=== PATIENT | male | born 1935 | race Caucasian/White ===

== ENCOUNTER 2019-10-27 14:05 | Inpatient (IN) | payer MEDICARE ==
[~2019-10-27] VITALS: Ht 180.3 cm; Wt 96.7 kg
--- NOTE | 2019-10-27 14:28 | NUR ---
BREAK RN: THIS IS AN 84 YO MALE PT BIB [facility] FROM HOME C/O LEFT SIDED CHEST PAIN RADIATING TO LEFT SCAPULA RATED 6/10. PAIN STARTED AT APPROX 1100. PT REPORTS PAIN IMPROVED SLIGHTLY WITH NITRO FROM 6 TO 5/10. PT TOOK 325 MG ASA. PT HAS HX OF CP WITH ELEVATED TROPONIN 09/19. PT SCHEDULED FOR CARDIAC CATH ON WEDNESDAY. CARDS ARTHUR. REPORT TO PRIMARY RN ZAIDA. SURJIT EDUARDO AT BEDSIDE FOR EVAL.
[2019-10-27] MEDS ORDERED: MORPHINE SULFATE 4 MG/ML, 1ML IVPush PRN (14:30)
[2019-10-27] MEDS ORDERED: NITROGLYCERIN OINT 2%, 1GM TP ONE ×2 (14:30→14:33)
[2019-10-27] MEDS ORDERED: MORPHINE SULFATE 4 MG/ML, 1ML ONE (14:33)
--- NOTE | 2019-10-27 14:41 | NUR ---
PT MEDICATED PER JUN, AWAIT 10A FOR HEPARIN GTT
[2019-10-27 14:42] LABS: BASOPHILS # (AUTO) 0.02 x10^3/uL (0-0.1); BASOPHILS % (AUTO) 0 % (0-1); EOSINOPHILS # (AUTO) 0.09 x10^3/uL (0-0.4); EOSINOPHILS % (AUTO) 1 % (1-7); LYMPHOCYTES % (AUTO) 30 % (22-44); MD NO; MEAN CORPUSCULAR HEMOGLOBIN 30.8 pg (27.5-34.5); MEAN CORPUSCULAR HGB CONC 33.4 g/dL (33.2-36.2); MEAN PLATELET VOLUME 7.3 fL (7.4-10.4); MONOCYTES # (AUTO) 0.55 x10^3/uL (0.2-0.8); MONOCYTES % (AUTO) 8 % (2-9); NEUTROPHILS # (AUTO) 4.03 x10^3/uL (1.8-6.8); NEUTROPHILS % (AUTO) 60 % (42-75); PLATELET COUNT 222 x10^3/uL (130-400); RED BLOOD COUNT 4.98 x10^6/uL (4.38-5.82); RED CELL DISTRIBUTION WIDTH 13.1 % (9.4-14.8)
[2019-10-27] MEDS ORDERED: AMLO10TA8 PO (14:48)
[2019-10-27] MEDS ORDERED: FURO20TA3 PO (14:48)
[2019-10-27] MEDS ORDERED: MAGN400T26 PO (14:48)
[2019-10-27] MEDS ORDERED: OMEG-123 PO (14:48)
[2019-10-27] MEDS ORDERED: LISI40TA PO (14:48)
[2019-10-27] MEDS ORDERED: POTA20TA14 PO (14:48)
[2019-10-27] MEDS ORDERED: CHOL10003 PO (14:48)
[2019-10-27] MEDS ORDERED: DONE10TA14 PO (14:48)
[2019-10-27 14:50] LABS: ALBUMIN 3.4 g/dL (3.4-5.0); CALCIUM 9.4 mg/dL (8.5-10.1); CHLORIDE 108 mmol/L (98-107)
[2019-10-27 14:58] LABS: ALANINE AMINOTRANSFERASE 36 U/L (12-78); ALKALINE PHOSPHATASE 63 U/L (45-117); ANION GAP 5 mmol/L (5-15); BILIRUBIN,TOTAL 0.3 mg/dL (0.2-1.0); CREATININE 1.19 mg/dL (0.7-1.3); TOTAL PROTEIN 6.9 g/dL (6.4-8.2); TROPONIN I < 0.015 ng/mL (0.000-0.045)
[2019-10-27] MEDS ORDERED: HEPARIN 5,000 UNITS/ML, 1ML IV PRN (15:00)
[2019-10-27] MEDS ORDERED: HEPARIN 25,000 UNITS/250ML PMX 250 ML IV PRN (15:00)
[2019-10-27] MEDS ORDERED: HEPARIN 5,000 UNITS/ML, 1ML IV ONE (15:00)
[2019-10-27] MEDS ORDERED: HEPARIN 5,000 UNITS/ML, 1ML ONE (15:01)
[2019-10-27] MEDS ORDERED: HEPARIN 25,000 UNITS/250ML PMX 250 ML ONE (15:01)
--- NOTE | 2019-10-27 15:10 | NUR ---
PT DECLINES AT THIS TIME TO STAND ON SCALE, NO SCALE ON BED, PT STATES "I AM 100% SURE I WAY 210 LBS, I WEIGH MYSELF EVERY MORNING"
[2019-10-27] MEDS ORDERED: ACETAMINOPHEN 325 MG TABLET PO PRN (17:30)
[2019-10-27] MEDS ORDERED: morphine SULFATE 10 MG/ML, 1ML IVPush PRN (17:30)
[2019-10-27] MEDS ORDERED: hydrALAzine 20 MG/ML, 1ML IVPush PRN (17:30)
[2019-10-27] MEDS ORDERED: ONDANSETRON 2MG/ML, 2ML IVPush PRN (17:30)
[2019-10-27] MEDS ORDERED: HYDROcodone/APAP 5/325 TABLET PO PRN (17:30)
[2019-10-27] MEDS ORDERED: POLYETHYLENE GLYCOL 17 GM PACKET PO PRN (17:30)
[2019-10-27] MEDS ORDERED: BISACODYL 10 MG SUPP PR PRN (17:30)
[2019-10-27 18:15] LABS: TROPONIN I < 0.015 ng/mL (0.000-0.045)
[2019-10-27 18:47] VITALS: BP 156/75
[2019-10-27 20:05] VITALS: BP 123/69
[2019-10-27] MEDS: ATORVASTATIN 40 MG TABLET PO SCH (20:19)
[2019-10-27] MEDS: METOPROLOL TARTRATE 25 MG TAB PO SCH (20:19)
[2019-10-27] MEDS: LISINOPRIL 10 MG TABLET PO SCH (20:19)
[2019-10-27] MEDS: FAMOTIDINE 20 MG TABLET PO SCH (20:19)
[2019-10-27] MEDS: ZOLPIDEM 5MG TABLET PO PRN (23:34)
[2019-10-27 23:46] LABS: TROPONIN I 0.016 ng/mL (0.000-0.045)
[2019-10-28 02:49] VITALS: BP 107/63
[2019-10-28 05:31] LABS: BASOPHILS # (AUTO) 0.05 x10^3/uL (0-0.1); BASOPHILS % (AUTO) 1 % (0-1); EOSINOPHILS # (AUTO) 0.16 x10^3/uL (0-0.4); EOSINOPHILS % (AUTO) 3 % (1-7); LYMPHOCYTES # (AUTO) 2.18 x10^3/uL (1-3.4); LYMPHOCYTES % (AUTO) 33 % (22-44); MD NO; MEAN CORPUSCULAR HEMOGLOBIN 30.2 pg (27.5-34.5); MEAN CORPUSCULAR HGB CONC 32.6 g/dL (33.2-36.2); MEAN PLATELET VOLUME 7.6 fL (7.4-10.4); MONOCYTES % (AUTO) 9 % (2-9); NEUTROPHILS # (AUTO) 3.53 x10^3/uL (1.8-6.8); NEUTROPHILS % (AUTO) 54 % (42-75); PLATELET COUNT 190 x10^3/uL (130-400); RED BLOOD COUNT 4.56 x10^6/uL (4.38-5.82); RED CELL DISTRIBUTION WIDTH 13.4 % (9.4-14.8)
[2019-10-28 05:41] LABS: CHLORIDE 107 mmol/L (98-107)
[2019-10-28 05:49] LABS: ANION GAP 7 mmol/L (5-15); CALCIUM 8.3 mg/dL (8.5-10.1); CHOL/HDL RATIO 3.4; CHOLESTEROL, TOTAL 163 mg/dL (140-239); CREATININE 1.23 mg/dL (0.7-1.3); HDL CHOL % 29 % (26-37); HDL CHOLESTEROL (DIRECT) 48 mg/dL (40-60); LDL CHOLESTEROL,CALCULATED 91 mg/dL (54-169); LDL/HDL RATIO 1.9 (0.5-3.0); TRIGLYCERIDES 119 mg/dL (50-200); VLDL CHOLESTEROL 24 mg/dL (0-25)
[2019-10-28] MEDS ORDERED: ASPIRIN 325 MG TABLET EC PO SCH ×2 (06:00→09:00)
[2019-10-28 07:40] VITALS: BP 115/55
[2019-10-28] MEDS: METOPROLOL TARTRATE 25 MG TAB PO SCH ×2 (08:00→17:26)
[2019-10-28] MEDS: FAMOTIDINE 20 MG TABLET PO SCH ×2 (10:00→20:44)
[2019-10-28] MEDS: LISINOPRIL 10 MG TABLET PO SCH ×2 (10:00→20:44)
[2019-10-28] MEDS: SODIUM CHLORIDE 0.9% 1,000 ML IV SCH ×2 (12:00→17:29)
[2019-10-28] MEDS ORDERED: VERAPAMIL 2.5 MG/ML, 2ML ONE (12:42)
[2019-10-28] MEDS ORDERED: HEPARIN 1,000 UNITS/ML, 10ML ONE (12:42)
[2019-10-28] MEDS ORDERED: BIVALIRUDIN 250 MG ONE (12:42)
[2019-10-28] MEDS ORDERED: MIDAZOLAM 1 MG/ML, 5ML ONE (12:42)
[2019-10-28] MEDS ORDERED: LIDOCAINE-MPF 1%, 5ML ONE (12:42)
[2019-10-28] MEDS ORDERED: TICAGRELOR 90 MG TABLET ONE (12:42)
[2019-10-28] MEDS ORDERED: FENTANYL PF 100 MCG/2ML ONE (12:42)
[2019-10-28] MEDS ORDERED: SODIUM CHLORIDE 0.9% 1,000 ML IV SCH (13:41)
[2019-10-28 14:00] VITALS: BP 159/75
[2019-10-28 14:40] VITALS: BP 170/75
[2019-10-28 17:25] VITALS: BP 170/70
[2019-10-28 20:08] VITALS: BP 148/78
[2019-10-28] MEDS: ATORVASTATIN 40 MG TABLET PO SCH (20:44)
[2019-10-28] MEDS: TICAGRELOR 90 MG TABLET PO SCH (20:44)
[2019-10-28] MEDS: ZOLPIDEM 5MG TABLET PO PRN (20:45)
[2019-10-29 00:16] VITALS: BP 158/68
[2019-10-29 06:02] LABS: BASOPHILS # (AUTO) 0.02 x10^3/uL (0-0.1); BASOPHILS % (AUTO) 0 % (0-1); EOSINOPHILS # (AUTO) 0.13 x10^3/uL (0-0.4); EOSINOPHILS % (AUTO) 2 % (1-7); LYMPHOCYTES # (AUTO) 1.32 x10^3/uL (1-3.4); LYMPHOCYTES % (AUTO) 22 % (22-44); MD NO; MEAN CORPUSCULAR HEMOGLOBIN 30.4 pg (27.5-34.5); MEAN PLATELET VOLUME 7.4 fL (7.4-10.4); MONOCYTES # (AUTO) 0.63 x10^3/uL (0.2-0.8); MONOCYTES % (AUTO) 10 % (2-9); NEUTROPHILS # (AUTO) 4.03 x10^3/uL (1.8-6.8); NEUTROPHILS % (AUTO) 66 % (42-75); PLATELET COUNT 197 x10^3/uL (130-400); RED BLOOD COUNT 4.85 x10^6/uL (4.38-5.82); RED CELL DISTRIBUTION WIDTH 13.4 % (9.4-14.8)
[2019-10-29 06:13] LABS: ANION GAP 4 mmol/L (5-15); CALCIUM 8.8 mg/dL (8.5-10.1); CHLORIDE 109 mmol/L (98-107); CREATININE 1.19 mg/dL (0.7-1.3)
[2019-10-29 06:25] VITALS: BP 145/74
[2019-10-29 08:34] VITALS: BP 144/72
[2019-10-29] MEDS: LISINOPRIL 10 MG TABLET PO SCH (08:43)
[2019-10-29] MEDS: FAMOTIDINE 20 MG TABLET PO SCH (08:43)
[2019-10-29] MEDS: TICAGRELOR 90 MG TABLET PO SCH (08:43)
[2019-10-29] MEDS: METOPROLOL TARTRATE 25 MG TAB PO SCH (08:43)
[2019-10-29] MEDS ORDERED: ASPIRIN 81 MG TABLET EC PO SCH (09:00)
[2019-10-29] MEDS ORDERED: AMLODIPINE 5 MG TABLET PO SCH (09:30)
[2019-10-29] MEDS ORDERED: TICA90TA PO (11:32)
[2019-10-29] MEDS ORDERED: ATOR40TA78 PO (11:32)
[2019-10-29] MEDS ORDERED: ASPI81TA45 PO (11:32)
[2019-10-29] MEDS ORDERED: FAMOTIDINE 20 MG TABLET PO SCH (21:00)
== END 2019-10-29 15:28 | disposition home or self-care (01) | DRG 246 ==
LOC: ED 14:45 → EDIP 16:05 → 5SO 18:37 → DCLOUNGE 10-29 15:11
PROVIDERS: ADMIT Internal Medicine; ATTEND Hospitalist
PROC: 4A023N7 Measurement of Cardiac Sampling and Pressure, Left Heart, Percutaneous Approach (ICD-10-PCS; principal; 2019-10-28)
PROC: 027034Z Dilation of Coronary Artery, One Artery with Drug-eluting Intraluminal Device, Percutaneous Approach (ICD-10-PCS; 2019-10-28)
PROC: B2111ZZ Fluoroscopy of Multiple Coronary Arteries using Low Osmolar Contrast (ICD-10-PCS; 2019-10-28)
DX: I25.110 Atherosclerotic heart disease of native coronary artery with unstable angina pectoris (principal); I50.31 Acute diastolic (congestive) heart failure; I69.911 Memory deficit following unspecified cerebrovascular disease; Z91.81 History of falling; Z82.49 Family history of ischemic heart disease and other diseases of the circulatory system; Z79.899 Other long term (current) drug therapy; I11.0 Hypertensive heart disease with heart failure
CPT/HCPCS: 36415; 71045; 80048; 80053; 80061; 83036; 84439; 84443; 84484; 85025; 85520; 93005; 93306; 93458; 96374; 99156; 99157; 99285; C1769; C1894; C9600; G0378; J0583; J1644; J2250; J3010; C1725; C1874; C1887; J2270; Q9967

== ENCOUNTER 2019-11-03 08:42 | Observation (INO) | payer MEDICARE ==
[~2019-11-03] VITALS: Ht 180.3 cm; Wt 96.7 kg
[~2019-11-03 08:42] MED LIST: AMLO10TA8 PO; ASPI81TA45 PO; ATOR40TA78 PO; CHOL10003 PO; DONE10TA14 PO; FURO20TA3 PO; LISI40TA PO; MAGN400T26 PO; OMEG-123 PO; POTA20TA14 PO; TICA90TA PO
[2019-11-03] MEDS ORDERED: SODIUM CHLORIDE FLUSH 10ML SYR IVF ONE (09:00)
[2019-11-03 09:16] LABS: BASOPHILS # (AUTO) 0.02 x10^3/uL (0-0.1); BASOPHILS % (AUTO) 0 % (0-1); EOSINOPHILS # (AUTO) 0.11 x10^3/uL (0-0.4); EOSINOPHILS % (AUTO) 2 % (1-7); LYMPHOCYTES % (AUTO) 27 % (22-44); MD NO; MEAN CORPUSCULAR HEMOGLOBIN 30.2 pg (27.5-34.5); MEAN CORPUSCULAR HGB CONC 32.6 g/dL (33.2-36.2); MEAN PLATELET VOLUME 7.3 fL (7.4-10.4); MONOCYTES # (AUTO) 0.53 x10^3/uL (0.2-0.8); MONOCYTES % (AUTO) 9 % (2-9); NEUTROPHILS # (AUTO) 3.43 x10^3/uL (1.8-6.8); NEUTROPHILS % (AUTO) 61 % (42-75); PLATELET COUNT 219 x10^3/uL (130-400); RED BLOOD COUNT 4.92 x10^6/uL (4.38-5.82); RED CELL DISTRIBUTION WIDTH 13.6 % (9.4-14.8)
[2019-11-03] MEDS ORDERED: NITROGLYCERIN OINT 2%, 1GM TP ONE ×2 (09:24→09:30)
--- NOTE | 2019-11-03 09:45 | NUR ---
Nitro paste given, chest pain 5/10. Normal sinus rhythm on monitor in the 60s. Side rails up for safety, call light and belongings in reach. No otherpatient needs at this time.
[2019-11-03 09:52] LABS: ALBUMIN 3.4 g/dL (3.4-5.0); CALCIUM 8.6 mg/dL (8.5-10.1)
[2019-11-03 09:57] LABS: ALANINE AMINOTRANSFERASE 37 U/L (12-78); ALKALINE PHOSPHATASE 69 U/L (45-117); ANION GAP 7 mmol/L (5-15); CHLORIDE 105 mmol/L (98-107); CREATININE 1.41 mg/dL (0.7-1.3); TOTAL PROTEIN 6.7 g/dL (6.4-8.2); TROPONIN I 0.049 ng/mL (0.000-0.045)
[2019-11-03 10:05] LABS: BILIRUBIN,TOTAL 0.7 mg/dL (0.2-1.0)
[2019-11-03 11:28] LABS: HCT (SEDRATE) 44.8 % (39.2-51.8)
[2019-11-03] MEDS ORDERED: LIDODERM 5% PATCH TD PRN (11:30)
[2019-11-03] MEDS ORDERED: hydrALAzine 20 MG/ML, 1ML IVPush PRN (11:30)
[2019-11-03] MEDS ORDERED: BISACODYL 10 MG SUPP PR PRN (11:30)
[2019-11-03] MEDS ORDERED: NITROGLYCERIN 0.4 MG BOTTLE (25 TABS) SL PRN (11:30)
[2019-11-03] MEDS ORDERED: POLYETHYLENE GLYCOL 17 GM PACKET PO PRN (11:30)
[2019-11-03] MEDS ORDERED: ONDANSETRON 2MG/ML, 2ML IVPush PRN (11:30)
[2019-11-03] MEDS ORDERED: ACETAMINOPHEN 325 MG TABLET PO PRN (11:30)
[2019-11-03 11:37] LABS: TROPONIN I 0.046 ng/mL (0.000-0.045)
--- NOTE | 2019-11-03 12:18 | NUR ---
[facility] TELEPHONE HAND-OFF REPORT GIVEN TO PAULA DONIS. PT READY TO GO TO HOSPITAL ROOM.
[2019-11-03 12:57] VITALS: BP 133/77
[2019-11-03 14:00] VITALS: BP 133/77
[2019-11-03] MEDS: HEPARIN 5,000 UNITS/ML, 1ML SQ SCH ×2 (14:20→22:43)
[2019-11-03 20:50] VITALS: BP 122/62
[2019-11-03] MEDS: TICAGRELOR 90 MG TABLET PO SCH (20:53)
[2019-11-03] MEDS ORDERED: MELATONIN 5 MG TABLET PO PRN (21:00)
[2019-11-03] MEDS ORDERED: ATORVASTATIN 40 MG TABLET PO SCH (21:00)
[2019-11-03 21:04] LABS: TROPONIN I 0.047 ng/mL (0.000-0.045)
[2019-11-04 02:00] VITALS: BP 110/72
[2019-11-04 05:45] LABS: BASOPHILS # (AUTO) 0.02 x10^3/uL (0-0.1); BASOPHILS % (AUTO) 0 % (0-1); EOSINOPHILS # (AUTO) 0.15 x10^3/uL (0-0.4); EOSINOPHILS % (AUTO) 3 % (1-7); LYMPHOCYTES # (AUTO) 1.68 x10^3/uL (1-3.4); LYMPHOCYTES % (AUTO) 30 % (22-44); MD NO; MEAN CORPUSCULAR HEMOGLOBIN 30.6 pg (27.5-34.5); MEAN CORPUSCULAR HGB CONC 33.1 g/dL (33.2-36.2); MEAN PLATELET VOLUME 7.5 fL (7.4-10.4); MONOCYTES # (AUTO) 0.55 x10^3/uL (0.2-0.8); MONOCYTES % (AUTO) 10 % (2-9); NEUTROPHILS # (AUTO) 3.26 x10^3/uL (1.8-6.8); NEUTROPHILS % (AUTO) 58 % (42-75); PLATELET COUNT 198 x10^3/uL (130-400); RED BLOOD COUNT 4.65 x10^6/uL (4.38-5.82); RED CELL DISTRIBUTION WIDTH 13.3 % (9.4-14.8)
[2019-11-04 05:53] LABS: ANION GAP 4 mmol/L (5-15); CALCIUM 8.8 mg/dL (8.5-10.1); CHLORIDE 107 mmol/L (98-107)
[2019-11-04 05:55] LABS: CREATININE 1.16 mg/dL (0.7-1.3)
[2019-11-04] MEDS: HEPARIN 5,000 UNITS/ML, 1ML SQ SCH (06:28)
[2019-11-04] MEDS ORDERED: PANTOPRAZOLE 40MG TABLET PO SCH (07:30)
[2019-11-04] MEDS ORDERED: DONEPEZIL 10 MG TABLET PO SCH (09:00)
[2019-11-04] MEDS ORDERED: OMEGA HOMEMEDPO SCH (09:00)
[2019-11-04] MEDS ORDERED: AMLODIPINE 5 MG TABLET PO SCH (09:00)
[2019-11-04] MEDS ORDERED: POTASSIUM CHLORIDE 20 MEQ TAB.ER.PRT PO SCH (09:00)
[2019-11-04] MEDS ORDERED: DHA HOMEMEDPO SCH (09:00)
[2019-11-04] MEDS ORDERED: LISINOPRIL 40 MG TABLET PO SCH (09:00)
[2019-11-04] MEDS ORDERED: [UNRECOGNIZED DRUG - OTHER] HOMEMEDPO SCH (09:00)
[2019-11-04] MEDS ORDERED: FUROSEMIDE 20 MG TABLET PO SCH (09:00)
[2019-11-04] MEDS ORDERED: CHOLECALCIFEROL 1,000 UNIT TABLET PO SCH (09:00)
[2019-11-04] MEDS ORDERED: FISH OIL HOMEMEDPO SCH (09:00)
[2019-11-04] MEDS ORDERED: MAGNESIUM OXIDE 400 MG TABLET PO SCH (09:00)
[2019-11-04] MEDS ORDERED: EPA HOMEMEDPO SCH (09:00)
[2019-11-04] MEDS ORDERED: ASPIRIN 81 MG TABLET EC PO SCH (09:00)
[2019-11-04] MEDS: TICAGRELOR 90 MG TABLET PO SCH (09:08)
[2019-11-04 09:35] VITALS: BP 160/68
[2019-11-04] MEDS ORDERED: NITR0.4T28 SL (11:58)
[2019-11-04 13:21] VITALS: BP 134/78
== END 2019-11-04 13:15 | disposition home or self-care (01) ==
LOC: ED 09:13 → INTOOBSV 10:48 → EDIP 10:48 → 5SO 13:41
PROVIDERS: ADMIT Family Medicine; ATTEND Hospitalist
DX: R07.89 Other chest pain (principal); I25.110 Atherosclerotic heart disease of native coronary artery with unstable angina pectoris; I10 Essential (primary) hypertension; R41.3 Other amnesia; Z95.5 Presence of coronary angioplasty implant and graft; Z91.81 History of falling; Z87.891 Personal history of nicotine dependence
CPT/HCPCS: 36415; 71045; 80048; 80053; 84484; 85025; 85651; 93005; 96372; 99285; G0378; J1644

== ENCOUNTER 2020-07-11 22:10 | Observation (INO) | payer MEDICARE ==
[~2020-07-11] VITALS: Ht 180.3 cm; Wt 93.4 kg
[~2020-07-11 22:10] MED LIST changes: +AMLO-211 PO; -AMLO10TA8 PO; -LISI40TA PO; +LISI40TA9 PO; +NITR0.4T28 SL
--- NOTE | 2020-07-11 22:31 | NUR ---
Pt has 0-1/10 chest pain now, no n/v, no sob. EKG done on arrival by EMT. IV patent from field. Pt has had his brilinta and 325 asa today. On cr monitor, pulse ox, bed low, call tovar provided. Pt stable sinus annmarie no st elevation noted on tele. Labs drawn and sent, PCXR done. AIDET provided. Will continue to monitor, pt is aware if cp returns to notifiy this nurse right away.
[2020-07-11 22:37] LABS: BASOPHILS % (AUTO) 1 % (0-1); EOSINOPHILS % (AUTO) 3 % (1-7); LYMPHOCYTES % (AUTO) 40 % (22-44); MEAN CORPUSCULAR HEMOGLOBIN 30.6 pg (27.5-34.5); MEAN CORPUSCULAR HGB CONC 34.1 g/dL (33.2-36.2); MEAN PLATELET VOLUME 7.1 fL (7.4-10.4); MONOCYTES % (AUTO) 12 % (2-9); NEUTROPHILS % (AUTO) 44 % (42-75); PLATELET COUNT 197 x10^3/uL (130-400); RED BLOOD COUNT 4.69 x10^6/uL (4.38-5.82); RED CELL DISTRIBUTION WIDTH 14.2 % (9.4-14.8)
[2020-07-11 22:39] LABS: MD NO
[2020-07-11 22:48] LABS: ALBUMIN 3.3 g/dL (3.4-5.0); ANION GAP 4 mmol/L (5-15); CALCIUM 8.5 mg/dL (8.5-10.1); CHLORIDE 109 mmol/L (98-107); CREATININE 1.13 mg/dL (0.7-1.3)
[2020-07-11 22:51] LABS: TROPONIN I < 0.015 ng/mL (0.000-0.045)
--- NOTE | 2020-07-11 23:18 | NUR ---
Pt remains sinus annmarie no ectopy no st elevation, no cp, no sob. AIDET provided. Will continue to monitor.
--- NOTE | 2020-07-11 23:24 | NUR ---
Updated pt on POC for admission, pt in agreement. Med recon updated, will continue to monitor. NAD, RR equal and unlabored.
--- NOTE | 2020-07-11 23:37 | NUR ---
Dr Cordova at bedside to update pt of POC. Pt agrees.
[2020-07-12 00:26] VITALS: BP 160/77
[2020-07-12 00:30] VITALS: BP 160/77
[2020-07-12] MEDS ORDERED: MELATONIN 5 MG TABLET PO PRN (01:30)
[2020-07-12] MEDS ORDERED: morphine SULFATE 10 MG/ML, 1ML IV PRN (02:00)
[2020-07-12] MEDS: HEPARIN 5,000 UNITS/ML, 1ML SQ SCH ×2 (02:49→08:15)
[2020-07-12 03:06] LABS: CHOLESTEROL, TOTAL 101 mg/dL (140-239); TRIGLYCERIDES 89 mg/dL (50-200); VLDL CHOLESTEROL 18 mg/dL (0-25)
[2020-07-12 03:09] LABS: CHOL/HDL RATIO 1.6; HDL CHOL % 63 % (26-37); HDL CHOLESTEROL (DIRECT) 64 mg/dL (40-60); LDL CHOLESTEROL,CALCULATED 19 mg/dL (54-169); LDL/HDL RATIO 0.3 (0.5-3.0)
[2020-07-12 05:40] LABS: TROPONIN I 0.019 ng/mL (0.000-0.045)
[2020-07-12 08:00] VITALS: BP 149/75
[2020-07-12 08:34] LABS: TROPONIN I 0.016 ng/mL (0.000-0.045)
[2020-07-12] MEDS ORDERED: REGADENOSON 0.4 MG/5 ML SYRINGE ONE (08:37)
[2020-07-12] MEDS ORDERED: DONEPEZIL 10 MG TABLET PO SCH (09:00)
[2020-07-12] MEDS ORDERED: SODIUM CHLORIDE FLUSH 10ML SYR IVF SCH (09:00)
[2020-07-12] MEDS ORDERED: TICAGRELOR 90 MG TABLET PO SCH (09:00)
[2020-07-12] MEDS ORDERED: AMLODIPINE 5 MG TABLET PO SCH (09:00)
[2020-07-12] MEDS ORDERED: LISINOPRIL 40 MG TABLET PO SCH (09:00)
[2020-07-12] MEDS ORDERED: AMLODIPINE 5 MG TABLET PO ONE (13:30)
[2020-07-12] MEDS ORDERED: AMLO-150 PO (13:33)
[2020-07-12] MEDS ORDERED: PANT40TA3 PO (13:33)
[2020-07-12 15:00] VITALS: BP 135/78
[2020-07-12] MEDS ORDERED: ATORVASTATIN 40 MG TABLET PO SCH (21:00)
[2020-07-13] MEDS ORDERED: ASPIRIN 325 MG TABLET EC PO SCH (06:00)
[2020-07-13] MEDS ORDERED: AMLODIPINE 10 MG TAB PO SCH (09:00)
== END 2020-07-12 15:50 | disposition home or self-care (01) ==
LOC: ED 22:39 → EDIP 07-12 00:06 → INTOOBSV 07-12 00:06 → 5SO 07-12 00:23 → DCLOUNGE 07-12 15:43
PROVIDERS: ADMIT Internal Medicine; ATTEND Internal Medicine
DX: R07.89 Other chest pain (principal); I25.118 Atherosclerotic heart disease of native coronary artery with other forms of angina pectoris; I10 Essential (primary) hypertension; F03.90 Unspecified dementia, unspecified severity, without behavioral disturbance, psychotic disturbance, mood disturbance, and anxiety; I25.2 Old myocardial infarction; Z79.82 Long term (current) use of aspirin; Z79.899 Other long term (current) drug therapy; Z95.5 Presence of coronary angioplasty implant and graft
CPT/HCPCS: 36415; 71045; 78452; 80048; 80061; 82040; 84484; 85025; 93005; 93017; 93306; 96372; 99285; A9502; G0378; J1644; J2785